=== PATIENT | female | born 1950 | race Caucasian/White ===

== ENCOUNTER 2021-03-19 10:45 | Observation (INO) ==
[~2021-03-19 10:45] MED LIST: Povidone-Iodine 45 ML, Sodium Chloride IRRigation 1,000 ML IR ONE; TOTAL JOINT MIXTURE (100ML) INTRAART ONE
[2021-03-19] MEDS ORDERED: Lidocaine -MPF 2% 5 ML VIAL ONE (11:32)
[2021-03-19] MEDS ORDERED: *HR* Propofol 200 MG/20 ML VIAL IVP ONE (11:32)
[2021-03-19] MEDS ORDERED: *HR* Midazolam HCl 2 MG/2 ML VIAL ONE (11:32)
[2021-03-19] MEDS ORDERED: *HR* FentaNYL (PF) 100 MCG/2 ML VIAL ONE (11:32)
[2021-03-19] MEDS ORDERED: Ondansetron 4 MG/2 ML VIAL ONE (11:32)
[2021-03-19] MEDS ORDERED: *HR* Rocuronium Bromide 50 MG/5 ML VIAL ONE (11:32)
[2021-03-19] MEDS ORDERED: Famotidine 20 MG/2 ML VIAL IVP ONE (11:40)
[2021-03-19] MEDS ORDERED: CeFAZolin Syr 2,000MG/20 ML 2,000 MG/20 ML SYRINGE IVPB ONE (11:54)
[2021-03-19] MEDS ORDERED: Albuterol 2.5 MG/3 ML NEBULIZER IH PRN (11:57)
[2021-03-19] MEDS ORDERED: Vancomycin 1,000 MG VIAL ONE (12:00)
[2021-03-19] MEDS ORDERED: Ringers Solution, Lactated 1,000 ML IVC SCH ×2 (12:00→17:00)
[2021-03-19] MEDS ORDERED: Tranexamic Acid 1,000 MG/10 ML VIAL ONE (13:41)
[2021-03-19] MEDS ORDERED: Albumin Human 5% 25.0 GM/500 ML IV.SOLN ONE (15:18)
[2021-03-19] MEDS ORDERED: EPHEDrine 50 MG/ML VIAL ONE (15:20)
[2021-03-19] MEDS ORDERED: Povidone-Iodine 45 ML, Sodium Chloride IRRigation 1,000 ML IR ONE (16:15)
[2021-03-19] MEDS ORDERED: Ethanol\\Acetic Acid\\Na Ace\\Ben 1,000 ML IRRIG.SOLN IR ONE (16:18)
[2021-03-19 16:23] LABS: Hematocrit 28.7 % (35.3-44.9); Hemoglobin 9.5 g/dL (11.5-15.4)
[2021-03-19] MEDS ORDERED: Ondansetron 4 MG/2 ML VIAL IVP PRN ×3 (16:56→23:24)
[2021-03-19] MEDS ORDERED: Naloxone 0.4 MG/ML INJ IVP PRN ×2 (16:56→23:24)
[2021-03-19] MEDS ORDERED: Sennosides 8.6 MG TABLET PO PRN ×2 (16:56→23:24)
[2021-03-19] MEDS ORDERED: *HR* OxyCODONE Immed Rel 5 MG TABLET PO PRN ×3 (16:56→18:21)
[2021-03-19] MEDS ORDERED: MOM Conc 10 ML UD.LIQ PO PRN ×2 (16:56→23:24)
[2021-03-19] MEDS ORDERED: *HR* Promethazine 25 MG/ML VIAL IM PRN ×2 (16:56→23:24)
[2021-03-19] MEDS ORDERED: Ascorbic Acid 500 MG TABLET PO SCH (17:00)
[2021-03-19] MEDS ORDERED: *HR* HYDROmorphone 2 MG TABLET PO PRN (17:01)
[2021-03-19] MEDS ORDERED: Dextrose Gel 15 GM/37.5 ML TUBE PO PRN ×4 (17:02→23:24)
[2021-03-19] MEDS ORDERED: *HR* Dextrose 50 % in Water (Syg) 50 ML SYRINGE IVP PRN ×2 (17:02→23:24)
[2021-03-19] MEDS ORDERED: D5% in Water 1,000 ML IVC PRN ×2 (17:02→23:24)
[2021-03-19] MEDS ORDERED: Insulin Human Regular 3 UNIT in 0.9 % Sodium Chloride 10 ML IV ONE (17:57)
[2021-03-19] MEDS ORDERED: Ketorolac 30 MG/ML VIAL IVP SCH (18:00)
[2021-03-19] MEDS ORDERED: Insulin Regular, Human 100 UNIT/ML ONE (18:01)
[2021-03-19] MEDS ORDERED: *HR* Meperidine 25 MG/ML SYRINGE IVP ONE (18:25)
[2021-03-19] MEDS ORDERED: Aspirin Enteric Coated 81 MG Tablet PO SCH (21:00)
[2021-03-20] MEDS: Ketorolac 30 MG/ML VIAL IVP SCH ×4 (00:37→23:36)
[2021-03-20] MEDS: CeFAZolin 2 GM/120 ML BAG IVPB SCH ×4 (00:48→23:45)
[2021-03-20] MEDS: *HR* HYDROmorphone 2 MG TABLET PO PRN ×2 (02:56→10:07)
[2021-03-20] MEDS: Ringers Solution, Lactated 1,000 ML IVC SCH ×2 (02:57→21:31)
[2021-03-20] MEDS: *HR* OxyCODONE Immed Rel 5 MG TABLET PO PRN ×5 (04:18→21:30)
[2021-03-20 08:10] LABS: Basophils % 0.1 %; Hematocrit 21.6 % (35.3-44.9); Immature Granulocytes % 0.4 % (0-4); Lymphocytes # 1.2 K/mcL (0.6-4.6); Lymphocytes % 8.9 %; Mean Corpuscular HGB Conc 33.8 g/dL (31.6-35.5); Mean Corpuscular Hemoglobin 32.3 pg (28.0-33.3); Mean Corpuscular Volume 95.6 fL (83.0-100.0); Mean Platelet Volume 11.8 fL (9.4-12.4); Monocytes # 1.2 K/mcL (0.0-1.3); Platelet Count 191 K/mcL (140-400); Red Blood Count 2.26 M/mcL (3.82-4.97); Red Cell Distribution Width 15.1 % (11.5-14.5); Segmented Neutrophils % 81.6 %; White Blood Count 13.5 K/mcL (4.3-11.1)
[2021-03-20 08:15] LABS: Hemoglobin 7.3 g/dL (11.5-15.4)
[2021-03-20 08:24] LABS: BUN/Creatinine Ratio 20 (6-26); Blood Urea Nitrogen 19 mg/dL (8-23); Calcium 7.9 mg/dL (8.6-10.3); Carbon Dioxide 22 mEq/L (23-29); Chloride 102 mEq/L (98-107); Glucose 149 mg/dL (70-105); Osmolality,Calculated 281 (280-300); Potassium 4.3 mEq/L (3.5-5.1); Sodium 133 mEq/L (136-145); eGFR For African Americans > 60 (> 60); eGFR For Non-African Americans 57 (> 60)
[2021-03-20] MEDS: Folic Acid 1 MG TABLET PO SCH (08:36)
[2021-03-20] MEDS: Multivit/Ca/Min/Fe/FA 1 TAB TABLET PO SCH (08:36)
[2021-03-20] MEDS: Ascorbic Acid 500 MG TABLET PO SCH ×2 (08:36→17:30)
[2021-03-20] MEDS ORDERED: Folic Acid 1 MG TABLET PO SCH (09:00)
[2021-03-20] MEDS ORDERED: Aspirin Enteric Coated 81 MG Tablet PO SCH (09:00)
[2021-03-20] MEDS ORDERED: Multivit/Ca/Min/Fe/FA 1 TAB TABLET PO SCH (09:00)
[2021-03-20] MEDS ORDERED: Furosemide 40 MG TABLET PO SCH (09:00)
[2021-03-20] MEDS: *HR* Rivaroxaban 10 MG TABLET PO SCH (17:30)
[2021-03-20] MEDS ORDERED: CeFAZolin 2 GM/120 ML BAG IVPB SCH (21:00)
[2021-03-21] MEDS: *HR* OxyCODONE Immed Rel 5 MG TABLET PO PRN ×3 (03:41→21:53)
[2021-03-21] MEDS: Ringers Solution, Lactated 1,000 ML IVC SCH ×2 (03:55→18:03)
[2021-03-21 04:53] LABS: Basophils % 0.3 %; Eosinophils # 0.2 K/mcL (0.0-0.6); Eosinophils % 1.5 %; Hematocrit 20.3 % (35.3-44.9); Hemoglobin 6.4 g/dL (11.5-15.4); Immature Granulocytes % 0.5 % (0-4); Lymphocytes # 2.6 K/mcL (0.6-4.6); Lymphocytes % 25.1 %; Mean Corpuscular HGB Conc 31.5 g/dL (31.6-35.5); Mean Corpuscular Hemoglobin 30.9 pg (28.0-33.3); Mean Corpuscular Volume 98.1 fL (83.0-100.0); Mean Platelet Volume 11.8 fL (9.4-12.4); Monocytes % 9.4 %; Neutrophils # 6.6 K/mcL (1.6-8.9); Platelet Count 158 K/mcL (140-400); Red Blood Count 2.07 M/mcL (3.82-4.97); Red Cell Distribution Width 15.6 % (11.5-14.5); Segmented Neutrophils % 63.2 %; White Blood Count 10.5 K/mcL (4.3-11.1)
[2021-03-21 05:13] LABS: BUN/Creatinine Ratio 22 (6-26); Blood Urea Nitrogen 22 mg/dL (8-23); Calcium 7.6 mg/dL (8.6-10.3); Carbon Dioxide 22 mEq/L (23-29); Chloride 104 mEq/L (98-107); Glucose 129 mg/dL (70-105); Osmolality,Calculated 281 (280-300); Sodium 133 mEq/L (136-145); eGFR For African Americans > 60 (> 60); eGFR For Non-African Americans 54 (> 60)
[2021-03-21] MEDS: Multivit/Ca/Min/Fe/FA 1 TAB TABLET PO SCH (08:42)
[2021-03-21] MEDS: Ketorolac 30 MG/ML VIAL IVP SCH ×2 (08:44→17:50)
[2021-03-21] MEDS: CeFAZolin 2 GM/120 ML BAG IVPB SCH ×2 (08:46→17:50)
[2021-03-21] MEDS ORDERED: Furosemide 20 MG/2 ML VIAL IVP PRN (09:02)
[2021-03-21] MEDS ORDERED: 0.9 % Sodium Chloride 250 ML IVC SCH (09:15)
[2021-03-21] MEDS: Ascorbic Acid 500 MG TABLET PO SCH ×2 (10:50→17:47)
[2021-03-21] MEDS: Folic Acid 1 MG TABLET PO SCH (10:55)
[2021-03-21] MEDS: Cholecalciferol (D-3) 1,000 UNIT (25MCG) TABLET PO SCH (17:44)
[2021-03-21] MEDS: *HR* Rivaroxaban 10 MG TABLET PO SCH (17:49)
[2021-03-22] MEDS: CeFAZolin 2 GM/120 ML BAG IVPB SCH ×3 (00:24→16:54)
[2021-03-22] MEDS: Ketorolac 30 MG/ML VIAL IVP SCH ×3 (00:25→14:36)
[2021-03-22] MEDS: *HR* OxyCODONE Immed Rel 5 MG TABLET PO PRN ×4 (04:13→22:33)
[2021-03-22] MEDS: Ringers Solution, Lactated 1,000 ML IVC SCH (08:09)
[2021-03-22] MEDS: Folic Acid 1 MG TABLET PO SCH (08:12)
[2021-03-22] MEDS: Ascorbic Acid 500 MG TABLET PO SCH ×2 (08:12→18:15)
[2021-03-22] MEDS: Cholecalciferol (D-3) 1,000 UNIT (25MCG) TABLET PO SCH (08:13)
[2021-03-22] MEDS: Multivit/Ca/Min/Fe/FA 1 TAB TABLET PO SCH (08:13)
[2021-03-22] MEDS ORDERED: CALTRATE PO SCH (09:00)
[2021-03-22] MEDS ORDERED: [UNRECOGNIZED DRUG - OTHER] PO SCH (09:00)
[2021-03-22] MEDS ORDERED: NON-FORMULARY MEDICATION 1 EACH EACH (Multivit-Min/Iron/Folic/Lutein [Centrum Silver Women PO SCH (09:00)
[2021-03-22 09:49] LABS: Basophils % 0.4 %; Eosinophils # 0.4 K/mcL (0.0-0.6); Eosinophils % 3.9 %; Hematocrit 22.5 % (35.3-44.9); Hemoglobin 7.4 g/dL (11.5-15.4); Immature Granulocytes % 0.8 % (0-4); Lymphocytes # 2.1 K/mcL (0.6-4.6); Lymphocytes % 21.5 %; Mean Corpuscular HGB Conc 32.9 g/dL (31.6-35.5); Mean Corpuscular Hemoglobin 31.8 pg (28.0-33.3); Mean Corpuscular Volume 96.6 fL (83.0-100.0); Monocytes % 9.8 %; Neutrophils # 6.1 K/mcL (1.6-8.9); Platelet Count 182 K/mcL (140-400); Red Blood Count 2.33 M/mcL (3.82-4.97); Red Cell Distribution Width 15.3 % (11.5-14.5); Segmented Neutrophils % 63.6 %; White Blood Count 9.7 K/mcL (4.3-11.1)
[2021-03-22 10:10] LABS: BUN/Creatinine Ratio 19 (6-26); Blood Urea Nitrogen 18 mg/dL (8-23); Calcium 8.1 mg/dL (8.6-10.3); Carbon Dioxide 27 mEq/L (23-29); Chloride 103 mEq/L (98-107); Glucose 132 mg/dL (70-105); Osmolality,Calculated 282 (280-300); Potassium 4.1 mEq/L (3.5-5.1); Sodium 134 mEq/L (136-145); eGFR For African Americans > 60 (> 60); eGFR For Non-African Americans 58 (> 60)
[2021-03-22] MEDS: Furosemide 40 MG TABLET PO SCH (14:36)
[2021-03-22] MEDS: *HR* Rivaroxaban 10 MG TABLET PO SCH (18:14)
[2021-03-23] MEDS: CeFAZolin 2 GM/120 ML BAG IVPB SCH ×3 (00:01→15:40)
[2021-03-23] MEDS: Ketorolac 30 MG/ML VIAL IVP SCH ×3 (00:01→15:40)
[2021-03-23] MEDS: Ringers Solution, Lactated 1,000 ML IVC SCH (00:02)
[2021-03-23 05:02] LABS: Basophils % 0.4 %; Eosinophils # 0.5 K/mcL (0.0-0.6); Eosinophils % 4.8 %; Hematocrit 23.4 % (35.3-44.9); Hemoglobin 7.7 g/dL (11.5-15.4); Immature Granulocytes % 0.6 % (0-4); Lymphocytes # 2.4 K/mcL (0.6-4.6); Lymphocytes % 23.6 %; Mean Corpuscular HGB Conc 32.9 g/dL (31.6-35.5); Mean Corpuscular Volume 97.1 fL (83.0-100.0); Mean Platelet Volume 11.1 fL (9.4-12.4); Monocytes # 0.9 K/mcL (0.0-1.3); Monocytes % 8.8 %; Neutrophils # 6.2 K/mcL (1.6-8.9); Nucleated Red Blood Cells 0.2 /100 WBC (0); Platelet Count 214 K/mcL (140-400); Red Blood Count 2.41 M/mcL (3.82-4.97); Red Cell Distribution Width 15.1 % (11.5-14.5); Segmented Neutrophils % 61.8 %
[2021-03-23 05:14] LABS: BUN/Creatinine Ratio 24 (6-26); Blood Urea Nitrogen 20 mg/dL (8-23); Calcium 8.3 mg/dL (8.6-10.3); Carbon Dioxide 24 mEq/L (23-29); Chloride 104 mEq/L (98-107); Glucose 116 mg/dL (70-105); Osmolality,Calculated 282 (280-300); Potassium 4.2 mEq/L (3.5-5.1); Sodium 134 mEq/L (136-145); eGFR For African Americans > 60 (> 60); eGFR For Non-African Americans > 60 (> 60)
[2021-03-23] MEDS: Cholecalciferol (D-3) 1,000 UNIT (25MCG) TABLET PO SCH (07:53)
[2021-03-23] MEDS: Folic Acid 1 MG TABLET PO SCH (07:53)
[2021-03-23] MEDS: Multivit/Ca/Min/Fe/FA 1 TAB TABLET PO SCH (07:54)
[2021-03-23] MEDS: Furosemide 40 MG TABLET PO SCH (07:54)
[2021-03-23] MEDS: Ascorbic Acid 500 MG TABLET PO SCH ×2 (07:54→17:52)
[2021-03-23 09:58] VITALS: O2SAT 96
[2021-03-23 11:11] VITALS: BP 151/81; PULSE 77; TEMP 98.2
[2021-03-23] MEDS: *HR* OxyCODONE Immed Rel 5 MG TABLET PO PRN (11:53)
[2021-03-23 16:01] LABS: Adenovirus Not Detected (Not Detect); Bordetella Pertussis Not Detected (Not Detect); Chlamydophila pneumoniae Not Detected (Not Detect); Coronavirus 229E Not Detected (Not Detect); Coronavirus HKU1 Not Detected (Not Detect); Coronavirus NL63 Not Detected (Not Detect); Coronavirus OC43 Not Detected (Not Detect); Human Metapneumovirus Not Detected (Not Detect); Human Rhinovirus/Enterovirus Not Detected (Not Detect); Influenza A Subtype 2009 H1 Not Detected (Not Detect); Influenza B Not Detected (Not Detect); Mycoplasma pneumoniae Not Detected (Not Detect); Parainfluenza Virus 1 Not Detected (Not Detect); Parainfluenza Virus 2 Not Detected (Not Detect); Parainfluenza Virus 3 Not Detected (Not Detect); Parainfluenza Virus 4 Not Detected (Not Detect); Respiratory Syncytial Virus Not Detected (Not Detect); SARS-CoV-2 Not Detected (Not Detect)
[2021-03-23] MEDS: *HR* Rivaroxaban 10 MG TABLET PO SCH (17:52)
== END 2021-03-23 18:15 ==
LOC: SDCAOSI 10:45 → 4WAOSI 10:45
PROVIDERS: ADMIT Orthopaedic Surgery; ATTEND Orthopaedic Surgery